=== PATIENT | male | born 1960 | race Caucasian/White ===

== ENCOUNTER 2021-01-20 17:44 | Observation (INO) | payer MEDICARE, OTHER ==
[2021-01-20 18:20] LABS: #Basophils 0.1 thou/uL (0.0-0.2); #Eosinphils 0.1 thou/uL (0.0-0.7); #Lymphocytes 1.7 thou/uL (1.20-3.40); #Monocytes 0.6 thou/uL (0.11-0.59); #Neutrophils 3.2 thou/uL (1.40-6.50); %Basophils 1.1 % (0.0-1.0); %Eosinophils 2.2 % (0.0-10.0); %Lymphocytes 30.3 % (21.0-51.0); %Monocytes 9.9 % (0.0-10.0); %Neutrophils 56.4 % (42.0-75.0); Hemoglobin 14.3 g/dL (14.0-18.0); Mean Corpuscular HGB CONC 34.7 g/dL (32.0-36.0); Mean Corpuscular Hemoglobin 30.8 pg (27.0-31.0); Mean Corpuscular Volume 88.7 fL (78.0-98.0); Mean Platelet Volume 7.9 fL (7.4-10.4); Platelet Count 179 thou/uL (130-400); Red Blood Cell (RBC) Count 4.63 mill/uL (4.70-6.10); White Blood Cell (WBC) Count 5.7 thou/uL (4.8-10.8)
[2021-01-20 18:41] LABS: ALT (SGPT) 16 U/L (8-55); AST (SGOT) 15 U/L (5-34); Albumin 4.6 g/dL (3.5-5.0); Alkaline Phosphatase 46 U/L (40-110); Anion Gap 14 mmol/L (10-20); BUN (Urea Nitrogen) 17 mg/dL (8.4-25.7); Bilirubin, Total 0.5 mg/dL (0.2-1.2); Calc. Creatinine Clearance 0 mL/min (70-130); Calcium 10.2 mg/dL (7.8-10.44); Carbon Dioxide 24 mmol/L (22-29); Chloride 106 mmol/L (98-107); Globulin 3.3 g/dL (2.4-3.5); Glucose 109 mg/dL (70-105); Potassium 4.3 mmol/L (3.5-5.1); Protein, Total 7.9 g/dL (6.0-8.3); Sodium 140 mmol/L (136-145)
[2021-01-20 19:20] LABS: SARS-CoV-2 NAA Rapid Test Not Detected (NotDetected)
[2021-01-20 21:55] LABS: Troponin I Less than 0.010 ng/mL (< 0.028)
[2021-01-20] MEDS ORDERED: Nitroglycerin 0.4 MG TAB (25 Tab Bottle) SL PRN (22:28)
[2021-01-20] MEDS ORDERED: Ondansetron PF 4 MG/2 ML Vial IVP PRN (22:28)
[2021-01-20] MEDS ORDERED: Aspirin 325 MG TAB PO SCH (23:00)
[2021-01-20] MEDS ORDERED: Acetaminophen 325 MG TAB ONE (23:10)
[2021-01-20] MEDS ORDERED: Aspirin 325 MG TAB ONE ×2 (23:10→23:11)
[2021-01-20] MEDS: Acetaminophen 325 MG TAB PO PRN (23:24)
[2021-01-20] MEDS ORDERED: Dextrose 5% in Water 1,000 ML IV PRN (23:33)
[2021-01-20] MEDS ORDERED: HumaLOG 300 UNITS/3 ML VIAL SC PRN (23:33)
[2021-01-20] MEDS ORDERED: Dextrose 50% Abboject 50 ML SYRINGE SLOW IVP PRN (23:33)
[2021-01-21 05:15] LABS: #Eosinphils 0.1 thou/uL (0.0-0.7); #Lymphocytes 2.1 thou/uL (1.20-3.40); #Monocytes 0.6 thou/uL (0.11-0.59); #Neutrophils 2.3 thou/uL (1.40-6.50); %Basophils 0.1 % (0.0-1.0); %Eosinophils 2.7 % (0.0-10.0); %Lymphocytes 41.6 % (21.0-51.0); %Monocytes 11.3 % (0.0-10.0); %Neutrophils 44.3 % (42.0-75.0); Hemoglobin 12.9 g/dL (14.0-18.0); Mean Corpuscular HGB CONC 34.8 g/dL (32.0-36.0); Mean Corpuscular Hemoglobin 30.8 pg (27.0-31.0); Mean Corpuscular Volume 88.6 fL (78.0-98.0); Mean Platelet Volume 7.8 fL (7.4-10.4); Platelet Count 156 thou/uL (130-400); RBC Distribution Width 11.9 % (11.5-14.5); Red Blood Cell (RBC) Count 4.18 mill/uL (4.70-6.10); White Blood Cell (WBC) Count 5.1 thou/uL (4.8-10.8)
[2021-01-21 05:34] LABS: Anion Gap 10 mmol/L (10-20); BUN (Urea Nitrogen) 16 mg/dL (8.4-25.7); Calc. Creatinine Clearance 0 mL/min (70-130); Calcium 9.5 mg/dL (7.8-10.44); Carbon Dioxide 27 mmol/L (22-29); Cardiac Risk 5.9 (Less than 4.5); Chloride 106 mmol/L (98-107); Cholesterol 200 mg/dl (< 200 Desired); Glucose 142 mg/dL (70-105); HDL Cholesterol 34 mg/dL (>60 Neg Risk); LDL Cholesterol, Calculated 116 mg/dL; Potassium 3.4 mmol/L (3.5-5.1); Sodium 140 mmol/L (136-145); Triglycerides 248 mg/dL (Less than 150)
[2021-01-21] MEDS ORDERED: Nitroglycerin 0.4 MG TAB 1 EACH ONE ×2 (06:26→06:28)
[2021-01-21] MEDS ORDERED: Ondansetron PF 4 MG/2 ML Vial ONE (06:26)
[2021-01-21 11:21] LABS: Troponin I Less than 0.010 ng/mL (< 0.028)
[2021-01-21 13:09] VITALS: BMI 34.9
[2021-01-21] MEDS ORDERED: FLU VACC QS2021-22(6MOS UP)/PF 60 MCG/0.5 ML SYRINGE IM ONE (15:00)
[2021-01-21] MEDS: Acetaminophen 325 MG TAB PO PRN (15:07)
[2021-01-21] MEDS ORDERED: Rivaroxaban 10 MG TAB PO SCH (18:45)
[2021-01-21] MEDS ORDERED: Carvedilol 25 MG TAB PO SCH (21:00)
[2021-01-22 01:01] LABS: Troponin I Less than 0.010 ng/mL (< 0.028)
[2021-01-22] MEDS: Acetaminophen 325 MG TAB PO PRN (08:46)
[2021-01-22] MEDS ORDERED: Carvedilol 25 MG TAB PO SCH ×2 (09:00→09:22)
[2021-01-22] MEDS ORDERED: Spironolactone 25 MG TAB PO SCH (09:00)
[2021-01-22] MEDS ORDERED: Furosemide 20 MG TAB PO SCH (09:00)
[2021-01-22] MEDS ORDERED: Losartan 25 MG TAB PO SCH (09:00)
[2021-01-22 12:30] VITALS: BP 136/67; TEMP 98.5
[2021-01-22] MEDS ORDERED: Rivaroxaban 10 MG TAB PO SCH (17:00)
== END 2021-01-22 14:06 | disposition home or self-care (01) ==
LOC: ERS 17:44 → ERHOLD 20:01 → 2SW 01-21 12:46
PROVIDERS: ADMIT Internal Medicine; ATTEND Internal Medicine
DX: R07.89 Other chest pain (principal); I42.0 Dilated cardiomyopathy; I44.7 Left bundle-branch block, unspecified; I48.0 Paroxysmal atrial fibrillation; E11.9 Type 2 diabetes mellitus without complications; I10 Essential (primary) hypertension; G47.33 Obstructive sleep apnea (adult) (pediatric); E78.5 Hyperlipidemia, unspecified; Z20.822 Contact with and (suspected) exposure to COVID-19; E66.9 Obesity, unspecified; Z68.35 Body mass index [BMI] 35.0-35.9, adult; Z79.01 Long term (current) use of anticoagulants; Z79.84 Long term (current) use of oral hypoglycemic drugs; Z79.899 Other long term (current) drug therapy; Z88.2 Allergy status to sulfonamides
CPT/HCPCS: 36415; 36416; 71045; 80048; 80053; 80061; 83880; 84484; 85025; 93005; 93306; 96374; G0378; J2405; U0002